=== PATIENT | female | born 1985 | race Caucasian/White ===

== ENCOUNTER 2020-03-12 10:01 | Emergency (ER) | payer OTHER, SELFPAY ==
[2020-03-12 10:05] VITALS: BP 128/70; PULSE 85; RESP 20; TEMP 36.5; O2SAT 100
--- NOTE | 2020-03-12 10:19 | ED.NAVMDI ---
HPI - Nausea/Vomiting/Diarrhea General Chief complaint: Nausea/Vomiting/Diarrhea Stated complaint: nausea diahhrea achey fatigued Time Seen by Provider: 03/12/20 10:20 Source: patient and RN notes reviewed History of Present Illness HPI Narrative: Patient is a 34-year-old female who presents the urgent care with complaints of nausea, body aches and fatigue. Patient states that her friend's mother is been in the ICU with Covid and they have both been tested, and have tested negative. Patient's Covid test was negative this morning. States that her symptoms been an ongoing since March 02 and she has not been seen at any other facility since then. Patient reports of low back pain for the last week. Recently diagnosed with a UTI approximately 1 month ago. Reports of nausea, diarrhea, body aches, fatigue, slight cough, headache, sore throat. Patient states that she has been using Mucinex and Tylenol [id number] for her symptoms. Denies of any other acute complaints. No acute distress noted. Patient aware of the plan of care. Some parts of this dictation were generated by voice recognition software and may contain typographical and/or grammatical inaccuracies. Related Data Home Medications Medication Instructions Recorded Confirmed quetiapine 100 mg PO HS 03/12/20 03/12/20 quetiapine 300 mg PO HS 03/12/20 03/12/20 Allergies Allergy/AdvReac Type Severity Reaction Status Date / Time latex Allergy Intermediate PEELING OF Verified 03/12/20 10:08 SKIN etodolac AdvReac Severe DELIRIUM/NA Verified 03/12/20 10:08 USEA PAPER TAPE Allergy Unknown PEELS SKIN Uncoded 03/12/20 10:34 OFF Review of Systems Review of Systems: Narrative: CONSTITUTIONAL: Reports of chills, fatigue EYES: Denies visual changes, redness, or discharge. ENT: Reports of sore throat CARDIOVASCULAR: Denies chest pain, palpitations, or edema. RESPIRATORY: Reports of mild cough without dyspnea GASTROINTESTINAL: Reports of nausea and diarrhea GENITOURINARY: Denies dysuria or hematuria. SKIN: Denies rash or itching. MUSCULOSKELETAL: Denies back pain, joint pain. Reports of body aches NEUROLOGIC: Reports of intermittent headaches All other systems reviewed are negative, except as documented in HPI. PMFSH Comments At the time of my signature, I reviewed and agree with the nursing past medical, surgical, social, and family history. There is no relevant family history pertinent to the patient complaint. Exam Narrative: Exam Narrative: GENERAL: This is a well-nourished, well-developed patient, in no apparent distress. HEAD: normocephalic, atraumatic. EYES: PERRL. Sclera clear/white. Vision is grossly intact. EARS: External ears normal, auditory canals clear and without drainage, TMs normal without perforation. Hearing grossly intact. NOSE: External nose normal with no obvious nasal discharge, nares without redness, no rhinorrhea. THROAT: Mucous membranes moist, moderate erythema noted to posterior oropharynx with moderate postnasal drainage NECK: Neck supple, non-tender without lymphadenopathy CARDIOVASCULAR: Regular rate and rhythm without murmurs, gallops, or rubs. RESPIRATORY: Clear to auscultation. Breath sounds equal bilaterally. No wheezes, rales, or rhonchi. GASTROINTESTINAL: Abdomen soft, mild diffuse lower abdominal tenderness, nondistended. Bowel sounds are active. SKIN: warm, intact with no suspicious lesions or rash, good texture and turgor. NEURO: awake, alert, and oriented to person, place and time. There were no obvious focal neurologic abnormalities. EXTREMITIES: No clubbing, cyanosis, or edema. BACK: Moderate bilateral CVA tenderness Course Vital Signs Vital signs: Vital Signs Temperature 97.7 F 03/12/20 10:05 Pulse Rate 85 03/12/20 10:05 Respiratory Rate 20 03/12/20 10:05 Blood Pressure 128/70 03/12/20 10:05 Pulse Oximetry 100 03/12/20 10:05 Temperature 97.7 F 03/12/20 10:05 Pulse Rate 85
== END 2020-03-12 10:40 | disposition home or self-care (01) ==
PROVIDERS: Emergency Provider Nurse Practitioner Family; PCP Family Medicine
DX: J02.0 Streptococcal pharyngitis (principal); E86.0 Dehydration; F31.9 Bipolar disorder, unspecified
CPT/HCPCS: 81003; 87086; 87804; 87880; 99213; G0463

== ENCOUNTER 2024-08-31 11:11 | Emergency (ER) | payer OTHER, SELFPAY ==
--- NOTE | ~2024-08-31 | XR_ITS ---
Left Knee Technique: AP, lateral, and oblique views were obtained. Clinical History: Pain Findings: No fracture or dislocation is seen. Osseous alignment is anatomic. Joint spaces are preserv ed without degenerative or erosive change. Soft tissues are unremarkable. No joint effusion is seen. Impression: Unremarkable left knee radiographs. Reviewed, dictated and finalized at location . Impression: Unremarkable left knee radiographs.
--- OUTSIDE RECORDS SUMMARY | 2024-08-31 11:13 | XMS_ITS | Clinical Summary ---
Author Organization [facility] Address [address] [place] [address] Care Team Providers Care Manager Concrete Name Role Phone Jeremy Mcgowan Primary Care Provider + Allergies Active Allergy Reactions Criticality Noted Date Comments Etodolac Unknown 03/18/2017 Ketorolac Unknown 11/30/2017 Latex Medications ALPRAZolam (XANAX) 1 mg tablet 2 mg daily. Active QUEtiapine (SEROquel) 200 mg tablet daily. Active pregabalin (LYRICA) 300 mg capsule Take 300 mg by mouth 2 (two) times a day. Active diclofenac DR (VOLTAREN) 75 mg EC tablet Take 150 mg by mouth 2 (two) times a day. Active albuterol HFA (PROVENTIL HFA,VENTOLIN HFA,PROAIR HFA) 90 mcg/actuation inhaler Inhale 1-2 puffs every 6 (six) hours as needed for wheezing. 1 Inhaler 8 Active oxyCODONE-acetamino phen (PERCOCET) 5-325 mg per tabletIndications:P ain Take 1 tablet by mouth every 6 (six) hours as needed for pain 8 tablet 9 Active ondansetron ODT (ZOFRAN-ODT) 4 mg disintegrating tablet Dissolve 1 tablet oral every 4 hours as needed for nausea or vomiting. 15 tablet 9 Active ibuprofen (ADVIL,MOTRIN) 600 mg tablet Take 1 tablet (600 mg total) by mouth 3 (three) times a day Take with food. 30 tablet 0 Active cyclobenzaprine (FLEXERIL) 10 mg tablet Take 1 tablet (10 mg total) by mouth 2 (two) times a day as needed for muscle spasms 20 tablet 0 Active HYDROcodone-acetami nophen (NORCO) 5-325 mg per tabletIndications:P ain Take 1 tablet by mouth every 6 (six) hours as needed for pain 14 tablet 3 Active Active Problems No known active problems Medical History Medical History Date Comments Anxiety Depression Bronchitis Social History Tobacco Use Types Packs/Day Years Used Date Smoking Tobacco: Every Day Cigarettes Smokeless Tobacco: Never Alcohol Use Standard Drinks/Week Comments Yes 0 (1 standard drink = 0.6 oz pur e alcohol) Personal Safety Answer Date Recorded Have you ever been in or are you currently in a harmful physical or emotional relationship or is someone making you feel afraid or unsafe? Denies 08/12/2023 Comments No Sex and Gender Information Value Date Recorded Sex Assigned at Not on file Legal Sex Female 1:18 AM [employer] Gender Identity Not on file Sexual Orientation Not on file Obstetrics History Last Filed Vital Signs Vital Sign Reading Time Taken Comments Blood Pressure 115/78 08/15/2023 2:00 AM CDT Pulse 63 08/15/2023 2:00 AM CDT Temperature 37.2 C (98.9 F) 08/14/2023 10:58 PM CDT Respiratory Rate 18 08/14/2023 10:58 PM CDT Oxygen Saturation 99% 08/15/2023 2:00 AM CDT Inhaled Oxygen Concentration - - Weight 95.3 kg (210 lb) 08/12/2023 2:14 PM CDT Height 165.1 cm (5' 5 ) 12/29/2022 10:40 AM CDT Body Mass Index 34.95 12/29/2022 10:40 AM CDT Plan of Treatment Health Maintenance Due Date Last Done Comments Cervical Cancer Screening 1985 Depression Screening 1985 Hepatitis C Screening 1985 DTaP/Tdap/Td Vaccine (1 - Tdap) 1996 Varicella Vaccines (1 of 2 - 13+ 2-dose series) 1998 Hepatitis B Screening 2003 Regular Well Visit/Exam 18-64 2003 Pneumococcal vaccine <65 (1 of 2 - PCV) 2004 Influenza Vaccine (Season Ended) 2024 HPV Vaccines Aged Out No longer eligi ble based on patient's age to complete this topic Insurance [facility] Care Teams Manager Concrete Relationship Specialty Start Date End Date Jeremy Mcgowan PA [address] [place] [id number] PCP - General Internal Medicine 08/12/23
--- OUTSIDE RECORDS SUMMARY | 2024-08-31 11:13 | XMS_ITS | Data Portability ---
Author Organization [facility] Address [address] [place] [address] Assessment No assessment recorded. Plan of Treatment Reminders Order Date Submit Date Provider Last Modified By Organization Details Last Modified Time Details Appointments None recorded. Lab None recorded. Referral None recorded. Procedures None recorded. Surgeries None recorded. Imaging None recorded. Medication Orders Lyrica 150 mg capsule 2018 019 [email or web address] 3 [id number] [address] [place], [place], [id number], 9 15:10:58 diclofenac sodium 75 mg tablet,del ayed release 2018 019 INTERFACE [id number], [address] [place], [place], [id number], 9 18:03:35 acyclovir 400 mg tablet 2018 019 INTERFACE [id number], [address] [place], [place], [id number], 9 18:04:11 Patient TargetsNo targets recorded. Patient Instructions Encounter Date Encounter Id Patient Instructions Last Modified By Organization Details Last Modified Time 10/19/2016 [id number] knee pain or injury: care instructions [email or web address] Not available 10/19/2016 16:43:38 shoulder pain: care instructions [email or web address] Not available 10/19/2016 16:43:38 Multiple chronic musculoskeletal complaints. SOme prev eval though probably limited. Advised I can request records from her PCP and continue with eval. but was clear that I am not ortho. Aftter review of records will form care paln. [email or web address] Not available 10/19/2016 15:16:11 Reason for Referral None Reported. Results Created Date Observation Date Name Description Value Unit Range Abnormal Flag Note LastModifiedBy Organization Detail LastModifiedTime Result Notes None recorded. Problems Name Problem SNOMED Code Status Onset Date Resolution Date Notes Provider Name and Address Organization Details Recorded Time Depressive disorder 85117219 [facility] 11:46:33 Pain of shoulder region 33518181 Active 017 PRABHJOT [place], [facility] 9 11:46:33 Knee pain Active 017 Cora Scott PRABHJOT [place], [facility] 9 11:46:33 Problem Notes None recorded. Procedures Surgical History Date Name Laterality Status Provider Name and Address Organization Details Recorded Time cholecystectomy completed Cora Scott PRABHJOT [facility] 08/24/2018 11:52:50 oophorectomy completed Cora Scott [facility] 08/24/2018 11:53:32 Tubal Ligation completed Cora Scott [facility]OT [facility] 08/24/2018 11:53:43 Imaging Results None recorded. Procedure Notes None recorded. Medical Equipment None Reported. Allergies Allergen ID Allergen Name Allergen Category Reaction Reaction Severity Criticality Documentation Date Start Date Code Code System Note Provider Name and Address Organization Details Recorded Time 721222 etodolac medicatio n Not available Not available Not available 08/24/20182016 99320 RxNorm PRABHJOT Madison [facility] 9 11:46:32 769724 latex environme nt,medica tion Not available Not available Not available 08/24/2018 76741 91 RxNorm PRABHJOT Madison [facility] 9 11:46:32 Medications Name Sig Start Date Stop Date Status Note LastModified by Organization Details LastModified Time quetiapine 300 mg tablet active Not Available Not Availabl e Not Available doxepin 25 mg capsule active Not Available Not Available Not Available hydrocodone 5 mg-acetaminop hen 325 mg tablet active Not Available Not Available Not Available ondansetron HCl 4 mg tablet 4 mg by oral route. 2016 active Not Available Not Available Not Avai lable prednisone 20 mg tablet active Not Available Not Available No t Available quetiapine 200 mg tablet Take 1 tablet every day by oral route. active Not Available Not Available No t Available acyclovir 400 mg tablet TAKE 1 TABLET BY MOUTH TWICE DAILY 2019 active Not Available Not Available Not Avai lable tramadol 50 mg tablet 50 mg by oral route. 2016 active Not Available Not Available Not Avai lable quetiapine 100 mg tablet 100 mg by oral route. active Not Available Not Available No t Available alprazolam 0.25 mg tablet 0.25 mg by oral route. active Not Available Not Available No t Available diclofenac sodium 75 mg tablet,delaye d release Take 1 tablet twice a day by oral route. 2018 active Not Available Not Available Not Avai lable gabapentin 100 mg capsule active Not Available Not Available Not Available ibuprofen 600 mg tablet active Not Available Not Available No t Available Xanax 1 mg tablet Take 1 tablet every day by oral route. active at bedtime Not Available Not Available Not Available Ventolin HFA 90 mcg/actuation aerosol inhaler active Not Available Not Available Not Available duloxetine 30 mg capsule,delay ed release active Not Available Not Available N ot Available pregabalin 150 mg capsule 2018 active Not Available Not Available Not Avai lable gabapentin 600 mg BID active Not Available Not Available No t Available Vitals Date Recorded Body weight Oxygen saturation Oxygen saturation in Arterial blood by Pulse oximetry Heart rate Body temperature Systolic blood pressure Diastolic blood pressure Provider Name and Address Organization Details Last Updated DateTime 9 58904.5 g 97 % 97 % 89 /min 98.4 [degF] 110 mm[Hg] 62 mm[Hg] Cora Scott MA [facility] 9 11:59:51 Date Recorded Body weight Body temperature Body height Body mass index (BMI) Systolic blood pressure Diastolic blood pressure Provider Name and Address Organization Details Last Updated DateTime 7 26857.9 3 g 98.5 [degF] 165.1 cm 27.8 kg/m2 120 mm[Hg] 70 mm[Hg] Leila Stiles LPN [facility] 7 14:53:46 Social History Question Answer Notes LastModified by Organizat ion Details LastModified Time Tobacco Smoking Status Current Every Day Smoker PRABHJOT [place], [facility] 08/24/2018 11:47:34 What Is Your Level Of Caffeine Consumption? Heavy Information not available 08/24/2018 How Much Tobacco Do You Chew? None Information not available 08/24/2018 What Type Of Diet Are You Following? REGULAR Information not available 08/24/2018 Which Illicit Or Recreational Drugs Have You Used? None Information not available 08/24/2018 Marital Status Single Informati on not available 08/24/2018 What Was The Date Of Your Most Recent Tobacco Screening? 09/02/2018 Information not available 11/02/2018 How Much Tobacco Do You Smoke? 1 PPD Information not available 08/24/2018 General Stress Level Medium Information not available 08/24/2018 Has Tobacco Cessation Counseling Been Provided? Yes [email or web address] Information not available 09/02/2018 On What Date Was Tobacco Cessation Counseling Provided? 09/02/2018 [email or web address] Information not available 09/02/2018 How Many Years Have You Smoked Tobacco? 20 Information not available 08/24/2018 Sex: Unknown Functional Status Question Answer Note LastModified by Organization D etails LastModified Time What is your level of alcohol consumption? None Information not available 08/24/2018 What is your occupation? [employer] Information not available 08/24/2018 What is your exercise level? None Information not available 08/24/2018 Mental Status None recorded. Family History Relationship Description Onset Age of this Age Resolved Age Notes LastModified by Organization Details LastModified Time Maternal Grandmother Malignant neoplasm of lung [email or web address] Not available 2016 14:50:20 Medical History Condition Response Coronary Artery Disease N Other N High Blood Pressure N Atrial Fibrillation N Kidney or Bladder Problems N Thyroid Problems N GI Problems Y Depression Y COPD N Blood Clots N Skin Problems N Anemia N Heart Attack (SC) N Anxiety Disorder Y Diabetes N Muscle, Joint, or Bone Problems Y Seizures/Epilepsy N Acid Reflux (GERD) N Cancer N Stroke N Asthma N Allergies Y High Cholesterol N Hepatitis N Liver Disease N Headaches N Heart Failure N Osteoporosis N Gynecological History Statement/Question Response Date of LMP 09/29/2016 LMP Approximate Obstetrics History GPAL:G 0 P 0 0 0 0 Past Encounters Encounter ID Performer Location Encounter Start Date Encounter Closed Date Diagnosis/Indication Diagnosis SNOMED-CT Code Diagnosis ICD10 Code Diagnosis Note [id number] Cyndi culver MD [facility] [address] [place] [address] 10/19/2016 14:32:44 10/19/2016 16:16:43 Knee pain 31595356 M25.569 [facility] 62631304 M25.697 [id number] Deirdre Tyler MD [facility] [address] [place] [address] 08/24/2018 10:57:50 09/05/2018 09:28:55 Moderate recurrent major depression 59083708 F33.1 Patient sees a psychiatri for trintellix and seroquel History of menorrhagia 060236651 Z87.42 Patient recently had uterine ablation due to heavy periods. Musculoskeletal pain 279 821562 M79.10 Herpes simplex 38701525 B00.9 Health Concerns Section Related Observation LastModified by Organization Detai ls LastModified Time None Recorded Concern Status LastModified by Organization Details LastModified Time None Recorded Advance Directives Directive None Recorded Payers Encounter Date Sequence Insurance Name Policy Number Policy Neal Covered Member ID Neal Member ID Guarantor Name 10/19/2016 1 [facility] PRIOR TO 10/09/2020 (MEDICAID REPLACEMENT - HMO) Jennie Price [id number] Jennie Price 08/24/2018 1 [facility] PRIOR TO 10/09/2020 (MEDICAID REPLACEMENT - HMO) Jennie Price [id number] Jennie Price Notes Date Note Type Note Provider Name and Address Organization Details Recorded Time 7 text/html 2 year B shoulder pain, hands numb and tingling, B knees and back pain. Prev PCP did xrays, told tendonitis and arthritis. Referred to specialist but unable to keep appts for unclear reasons. Is actually here today expecting orthopedic evaluation, believes referred by her insurance. Depression - sees psych with [facility]. Leila Stiles LPN [facility], [facility] 10/19/2016 15:35:55 9 text/html Anxiety/DepressionReported bypatient.Quality:symptoms improved Severity:denies suicidal ideations; able to maintain relationships; does not interfere with activities of daily living Onset/Timing:gradual Context:major life stressors;family problems;trouble at work Modifying Factors:Patient sees a psychiatrist regularly for medications Associated Symptoms:denies homicidal ideations; no visual/auditory hallucinations; maintaining functionality;anxiety;hyper sensitivity;depression;rest lessness/agitation;anhedoni a;anxiety with muscle tensionMusculoskeletal PainReported bypatient.Location:bilatera l shoulder; bilateral knee Quality:sharp Severity:interference with sleep;interference with work Timing:intermittent Context:trauma; overuse; unusual activity Alleviating factors:rest; relieved by changing position Aggravating factors:movement/positionin g; bending over; twisting Associated Symptoms:no fever; no weak limbs; no tingling; no numbness of the legs/feet; no incontinence ADL (Activities of Daily Living)improve with medication; takes diclofenac and lyrica Patient takes acyclovir to prevent outbreaks of herpes simplex. She has recently had an endometrial ablation to control heavy menstrual flow. Deirdre Tyler MD Attn: Accounting,[address] [place], [address], [facility] 09/02/2018 18:04:29 OBGyn Episode No OBEpisode recorded.
--- OUTSIDE RECORDS SUMMARY | 2024-08-31 11:13 | XMS_ITS | CONTINUITY OF CARE DOCUMENT ---
Author Name brandon taylor Address Unknown Organization [facility] Address [address] [place] [address] Phone [phone] Care Team Providers Care Office Administrative Assistant Name Role Phone Yves BURGESS, Kamran Unavailable CHINO LO MD Unavailable BELA BURGESS, MARTINA Holland Unavailable INSURANCE PROVIDERS Payer name Policy type / Coverage type [place] red republican [place] [facility] [employer] Medicaid 1 [id number]
--- OUTSIDE RECORDS SUMMARY | 2024-08-31 11:13 | XMS_ITS | Continuity of Care Document ---
Author Organization [facility] Address [address] [place] [address] [place] [address] Phone Care Team Providers Care Medical Assistant Supervisor Name Role Phone Aaron Riggins MD Unavailable Unavailable Allergies, Adverse Reactions, Alerts Substance Reaction Status Criticality TAPE, OCCLUSIVE ADHESIVE Active No Information CYCLOBENZAPRINE HCL Active No Infor mation latex Active No Information Medications Medication Instructions Dosage Effective Dates (start - stop) Status Comments Ultram 50 mg tablet take 1 tablet by oral route every 6 hours as needed - Active PRN for pain, avoid driving or operate machines Procedures Procedure Date OFFICE/OUTPATIENT VISIT, EST PREV VISIT, NEW, AGE 18-39 Advance Directives Directive Yes / No Effective Date File Name No Information Encounters Encounter Description Practice Location Reason(s) For Visit Diagnoses Date Provider Providers Copied on Encounter [facility], [address] [place], [place], [id number], tel:[phone] [facility] No Information Gilson Walker. [address] [place], [id number], [place]. tel:[phone] Referring Provider: Aaron Riggins, [address] [facility] [place], [id number]. tel:[phone] OFFICE/OUTPAT IENT VISIT, EST [facility], [address] [place], [place], [id number], tel:[phone] [facility] shoulder pain1 (chief complaint) Pain in left shoulder Gilson Walker. [address], [place], [place], [id number], [place]. tel:[phone] Referring Provider: Kathrine Sanchez [facility] [address], [place], [place], [id number]. tel:[phone] PREV VISIT, NEW, AGE 18-39 [facility], [address], [place], [place], [id number], [place] tel:[phone] [facility] Physical (chief complaint) Encntr for general adult medical exam w/o abnormal findings Gilson Walker. [address], [facility] [address], [place], [place], [id number], [place]. tel:[phone] Referring Provider: Aaron Riggins [address] [facility] [address], [place], [place], [id number]. tel:[phone] Family History Family Member Type Diagnosis Age At Onset Sister Problem (finding) Alive and well Mother Problem (finding) Alive and well Father Problem (finding) unkonwn Payers Payer name Insurance type Covered republican ID Authoriza tion(s) No Information Social History Type Description Quantity Date Captured Comments Alcohol Use Details Unknown Caffeine Use Details Unknown Tobacco Use Status Smoking Status No Information Sex Female Chief Complaint And Reason For Visit No Information Plan Of Treatment Date Type Action Status Referral Ordered: Davin Paul (related to Pain in left shoulder) ordered Referral Ordered: Physical Therapy (related to Pain in left shoulder) ordered Referral Referred To: Davin Paul [address] [place], [phone] Ordered: Referrals: Davin Paul. Evaluate and treat ordered Referral Referred To: Physical Therapy Ordered: Referrals: Physical Therapy. Evaluate and treat ordered Referral Ordered: MRI JOINT UPR EXTREM W/O DYE Left shoulder ordered History Of Present Illness Encounter Date Complaint History Of Prese nt Illness shoulder pain1 Pt c/o chronic l eft shoulder pain. Pt has dull ache daily, worse with movement. Pt had MRI done which showed some degenerative disease and some tendonitis. She does not have any tears. Pt has been taking NSAID but not working. [facility] 29 [facility]. Pt was making bed about one year ago and she felt acute pain posterior left shoudler area. Pt has sharp pain. Pt statse that the pain is getting worse and is constant and radiating down to left upper arm and to left side of neck for the past 3 weeks. Pt denies any new injury. Pt denies any numnbess. Pt states that she has 6/10 pain on average Pt has to baby her left shoulder all the time due to pain. Pt also takes xanax and trazodone for insomnia and anxiety at night. Pt sees psychiatrist. Instructions Date Instruction Additional Infor guerline No Information Assessments Type Assessment Date No Information
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
--- OUTSIDE RECORDS SUMMARY | 2024-08-31 11:13 | XMS_ITS | Clinical Summary ---
Author Organization [facility] Address [address] [place] [address] Phone Care Team Providers Care Software Specialist Name Role Phone Laz Cohen MD Primary Care Provider [phone] Allergies Active Allergy Reactions Criticality Noted Date Comments Etodolac Nausea 11/18/2016 Latex Rash 06/20/2017 Other Other (see Comments) 06/20/2017 pulls my skin off Tramadol Nausea 06/20/2017 Medications QUEtiapine (SEROQUEL) 100 MG Tablet Take 150 mg by mouth daily. Active gabapentin (NEURONTIN) 300 MG Capsule Take 600 mg by mouth 2 times daily. Active ALPRAZolam (XANAX) 1 MG Tablet Take 1 mg by mouth daily as needed. Active ondansetron (ZOFRAN) 4 MG Tablet Take 1-2 Tabs by mouth every 8 hours as needed for Nausea. 10 Tab 11/18/2016 Active tiZANidine (ZANAFLEX) 4 MG Tablet Take 1 Tab by mouth every 6 hours as needed. 14 Tab 06/20/2017 Active methylPREDNISol one (MEDROL DOSPACK) 4 MG Tablet Therapy Pack See product package insert for dosing schedule 21 Tab 06/20/2017 Active Social History Tobacco Use Types Packs/Day Years Used Date Smoking Tobacco: Every Day Cigarettes Smokeless Tobacco: Never Alcohol Use Standard Drinks/Week Comments No 0 (1 standard drink = 0.6 oz pur e alcohol) Comments No Sex and Gender Information Value Date Recorded Sex Assigned at Not on file Legal Sex Female 9:01 PM CDT Gender Identity Not on file Sexual Orientation Not on file Last Filed Vital Signs Vital Sign Reading Time Taken Comments Blood Pressure 122/68 06/20/2017 8:17 PM CDT Pulse 82 06/20/2017 8:17 PM CDT Temperature 36.5 C (97.7 F) 06/20/2017 6:26 PM CDT Respiratory Rate 16 06/20/2017 6:26 PM CDT Oxygen Saturation 100% 06/20/2017 8:17 PM CDT Inhaled Oxygen Concentration - - Weight 79.4 kg (175 lb) 06/20/2017 6:26 PM CDT Height 165.1 cm (5' 5 ) 06/20/2017 6:26 PM CDT Body Mass Index 29.12 06/20/2017 6:26 PM CDT Plan of Treatment Health Maintenance Due Date Last Done Comments Hepatitis C Virus (HCV) Screening 1985 TdaP Immunization 1985 Hepatitis B Immunization (1 of 3 - 19+ 3-dose series) 2004 Influenza Immunization (#1) 2023 SARS-COV-2 Immunization ( - 2023-25 season) 2023 Respiratory Syncytial Virus (RSV) Immunization (Adult) (1 - 1-dose 75+ series) 2060 Meningococcal Immunization (ACWY) Aged Out No longer eligible based on patient's age to complete this topic Pneumococcal Immunization Combined Aged Out No longer eligible based on patient's age to complete this topic Rotavirus Immunization Aged Out No lo nger eligible based on patient's age to complete this topic Insurance MEDICAID [facility] [employer] Care Teams Software Specialist Relationship Specialty Start Date End Date Laz Cohen MD [address] [facility] [address] [place] [address] PCP - General Family Medicine 11/18/16
--- OUTSIDE RECORDS SUMMARY | 2024-08-31 11:13 | XMS_ITS | Clinical Summary ---
Author Organization [facility] [employer] Address [address] [place] [address] Care Team Providers Care Armored Transport Service Manager Name Role Phone Osmel Rodriguez MD Primary Care Provider [phone] Source Comments [facility] [employer]non-owned Affiliates and Associated Physician Practices is amultiple site organization consisting of ambulatory clinics and hospital sitesin [place], [place], [place] and [place]. This disclosure is being madepursuant to the Care Everywhere program and may not contain all information available regarding this patient. Last updated 17.[facility] [employer] Allergies No known active allergies Medications * Be aware that medications may not be up to date on this document. Always verify current medications with the patient. TRAZODONE HCL PO Active GABAPENTIN PO Active ALPRAZolam (XANAX PO) Active fluticasone propionate (FLONASE) 50 MCG/ACT nasal sprayIndication s:Eustachian tube dysfunction, bilateral [place] 2 Sprays into each nostril once daily 1 Bottle 06/01/2016 Active Social History Tobacco Use Types Packs/Day Years Used Date Smoking Tobacco: Every Day Comments Unknown Sex and Gender Information Value Date Recorded Sex Assigned at Not on file Legal Sex Female 6:22 AM TRANSPORTATION ASSOCIATE Gender Identity Not on file Sexual Orientation Not on file Last Filed Vital Signs Vital Sign Reading Time Taken Comments Blood Pressure 112/60 06/01/2016 4:33 PM TRANSPORTATION ASSOCIATE Pulse 85 06/01/2016 4:33 PM TRANSPORTATION ASSOCIATE Temperature 36.8 C (98.2 F) 06/01/2016 4:33 PM TRANSPORTATION ASSOCIATE Respiratory Rate - - Oxygen Saturation - - Inhaled Oxygen Concentration - - Weight 77.1 kg (170 lb) 06/01/2016 4:33 PM TRANSPORTATION ASSOCIATE Height 165.1 cm (5' 5 ) 06/01/2016 4:33 PM TRANSPORTATION ASSOCIATE Body Mass Index 28.29 06/01/2016 4:33 PM TRANSPORTATION ASSOCIATE Plan of Treatment Health Maintenance Due Date Last Done Comments HIV SCREENING 2000 HEPATITIS C SCREENING 05/13/2003 DTAP/TDAP/TD VACCINES (1 - Tdap) 2004 HEPATITIS B VACCINE (1 of 3 - 19+ 3-dose series) 2004 COVID-19 VACCINE (1 - 2023-2 5 season) 2023 DEPRESSION SCREENING 04/11/2024 INFLUENZA VACCINE (Season Ended) 2024 ZOSTER VACCINE (1 of 2) 2035 HIB VACCINE Aged Out No longer eligi ble based on patient's age to complete this topic HPV VACCINE Aged Out No longer eligi ble based on patient's age to complete this topic MENINGOCOCCAL (Group B) VACC INE SHARED DECISION-MAKING Aged Out No longer eligibl e based on patient's age to complete this topic MENINGOCOCCAL GROUPS A/C/Y/W VACCINE Aged Out No longer eligible b ased on patient's age to complete this topic PNEUMOCOCCAL VACCINE Aged Out No long er eligible based on patient's age to complete this topic Insurance [facility] Care Teams Armored Transport Service Manager Relationship Specialty Start Date End Date Osmel Rodriguez MD [address] [place] [address] PCP - General 08/05/17
--- OUTSIDE RECORDS SUMMARY | 2024-08-31 11:13 | XMS_ITS | Referral Summary ---
Author Organization [facility] Address [address] [place] [address] Care Team Providers Care Integrated Logistics Programs Director Name Role Phone Jeremy Mcgowan Primary Care [...] Active Active Problems No known active problems Social History Tobacco Use Types Packs/Day Years [...] on file Legal Sex Female 1:18 AM UPHOLSTERY BUNDLER Gender Identity Not on file Sexual Orientation [...] 12/29/2022 10:40 AM CDT Plan of Treatment Not on file Insurance [facility] Care Teams Integrated Logistics Programs Director Relationship Specialty Start Date End Date Jeremy Mcogwan PA [address] [place] [address] PCP - General Internal Medicine 08/12/23
--- OUTSIDE RECORDS SUMMARY | 2024-08-31 11:14 | XMS_ITS | Data Portability ---
Author Organization [facility] [place] Address [address] [place] [address] Assessment Encounter Date Assessment Date Assessment LastModified by Organization Details LastModified Time 02/22/2024 02/22/2024 Annual gynecological exam performed. Patient will come back in a year unless there are new symptoms. [email or web address] Not available 02/22/2024 14:58:25 Plan of Treatment Reminders Order Date Submit Date Provider Last Modified By Organization Details Last Modified Time Details Appointments None recorded . Lab None recorded . Referral None recorded . Procedures None recorded . Surgeries None recorded . Imaging None recorded . Medication Orders Xanax 0.5 mg tablet 021 07[facility]18[facility]19 [id number], [address], [place], [place], [id number], 15:02:02 Patient TargetsNo targets recorded. Patient InstructionsNo instructions recorded. Reason for Referral None Reported. Results Created Date Observation Date Name Description Value Unit Range Abnormal Flag Note LastModifiedBy Organization Detail LastModifiedTime 07/18/1907/17/2020 CT + NG + TV, RNA, unspe cifie d speci men chlamydia trachomatis, PCR Negati ve negati ve Not Available [facility] (Lab) [address], [place], [address], 07/18/2020 12:50:13 07/18/19 21 07/17/2020 CT + NG + TV, RNA, unspe cifie d speci men neisseria gonorrhoeae, PCR Negati ve negati ve Not Available [facility] (Lab) [address], [place], [address], 07/18/2020 12:50:13 07/18/19 21 07/17/2020 CT + NG + TV, RNA, unspe cifie d speci men trichomonas vaginalis ribosomal RNA (rrna) Negati ve negati ve Not Available [facility] (Lab) [address], [place], [address], 07/18/2020 12:50:13 02/22/20 24 02/22/2024 IMAGE GUIDE D PAP AND HPV REGAR DLESS image guided Pap, HPV regardless of Pap result SEE RESULT S BELOW CASE REPOR T: Cytol ogy Gynec ologi katty Repor t Case: [id number] Autho crdes hernesto Provi shania: Stephon Garcia MD Colle cted: 02/21 1524 Order ing Locat ion: [place] [facility] Recei jeanette: 02/22 0212 First Scree n: Stefanie Scott, CT Speci men: Dottie nicholsong Pap - Image d, Cervi x STATE MENT OF ADEQU ACY: Satis facto ry for evalu ation Trans forma tion zone compo nent prese nt ----- ----- ----- ----- ----- ----- ----- ----- ----- ----- ----- ----- ----- ----- ----- ----- ----- ---- FINAL DIAGN OSIS: Negat seth for Intra epith elial Mirna galvan or [facility] springer (NIL) . Maryan hays by Stefanie Scott, CT on 03/01 at 9:43 AM ----- ----- ----- ----- ----- ----- ----- ----- ----- ----- ----- ----- ----- ----- ----- ----- ----- ---- HPV RESUL TS: HPV mRNA E6/E7 : No HPV mRNA Detec kalani NOTE: This high risk HPV mRNA assay detec ts fourt een high- risk HPV types (16, 18, 31, 33, 35, 39, 45, 51, 52, 56, 58, 59, 66, 68) witho ut diffe renti ation . COMME NT: This speci men was revie wed by a Cytot echno logis t and/o r Patho logis t (as indic ated in this repor t) after evalu ation using the Thinp rep Imagi ng Syste m. CLINI KATTY INFOR MATIO N: Menst rual Statu s: LMP (if appli cable ): 01/21 Clini katty Histo ry/Pr eviou s Pap: Type of Neopl denver (if appli cable ): Signi fican t Clini katty Findi ngs: Other Histo ry: Hormo nate (if appli cable ): PAP EDUCA MEREDITH L NOTE: The Pap Test is a scree ratna test with an inher ent false negat seth rate. Liqui d-bas ed sampl ing may decre ase, but will not elimi philip, false negat seth resul ts. A negat seth resul t does not precl ude the prese nce and/o r devel opmen t of disea se, since the prese nce of abnor mal cells in the sampl e depen ds on the locat ion of the lesio n and sampl ing techn ique. Ariel nued regul ar scree ratna is the best metho d of cance r preve ntion . If repor kalani cytol ogic findi ng do not corre late with physi katty and/o r histo rical findi ngs, furth er inves tigat ion is recom rommel d, as clini lou tee nted. Not Available [facility] (Lab) [address], [place], [address], 03/01/2024 10:46:56 Result Notes None recorded. 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 0 15:45:45 Right lower quadrant pain 604341102 Active 2017 Right lower quadrant pain;Recor ded Elsewhere: No Locatio n: [facility] rce: EHR Chroni c: N Practice ID: 0001 Billa ble Time: 02:30:00 PM Not Available [facility] 0 15:45:45 Cyst of ovary Active 2017 Unspecifie d ovarian cyst, unspecifie d side;Recor ded Elsewhere: No Locatio n: [facility] rce: EHR Chroni c: N Practice ID: 0001 Billa ble Time: 10:15:00 AM Not [facility] 0 15:45:45 Infection screening Active 2015 Encounter for screening for oth infec/para stc diseases;R ecorded Elsewhere: No Locatio n: [facility] rce: EHR Chroni c: N Practice ID: 0001 Billa ble Time: 03:30:00 PM [facility] 0 15:45:45 Screening for malignant neoplasm of cervix Active 2015 Screening for malignant neoplasms of the cervix;Rec orded Elsewhere: No Locatio n: [facility] rce: EHR Chroni c: N Practice ID: 0001 Billa ble Time: 03:30:00 PM [facility] 0 15:45:45 Lesion of ovary Active 2016 Other ovarian cyst, right side;Recor ded Elsewhere: No Locatio n: [facility] rce: EHR Chroni c: N Practice ID: 0001 Billa ble Time: 10:30:00 AM Not [facility] 0 15:45:45 Syphilis test finding 831189380 Active 2016 Encounter for STD screening; Recorded Elsewhere: No Locatio n: [facility] rce: EHR Chroni c: N Practice ID: 0001 Billa ble Time: 04:15:00 PM [facility] 0 15:45:45 Furuncle 163734707 Active 2015 Boil;Recor ded Elsewhere: No Locatio n: [facility] rce: EHR Chroni c: N Practice ID: 0001 Billa ble Time: 03:30:00 PM Not Available [facility] 0 15:45:45 Lesion of ovary Active 2018 Other ovarian cyst, left side;Recor ded Elsewhere: No Locatio n: [facility] rce: EHR Chroni c: N Practice ID: 0001 Billa ble Time: 02:30:00 PM [facility] 0 15:45:45 Evaluatio n finding Active 2016 Hematuria, unspecifie d;Recorded Elsewhere: No Locatio n: [facility] rce: EHR Chroni c: N Practice ID: 0001 Billa ble Time: 09:30:00 AM Not Available [facility] 0 15:45:46 Specializ ed medical examinati on Active 2014 Gynecologi katty Examinatio n;Recorded Elsewhere: No Locatio n: [facility] rce: EHR Chroni c: N Practice ID: 0001 Billa ble Time: 01:00:00 PM [facility] 0 15:45:46 Pelvic and perineal pain 278673392 Active 2018 Pelvic and perineal pain;Recor ded Elsewhere: No Locatio n: [facility] rce: EHR Chroni c: N Practice ID: 0001 Billa ble Time: 09:15:00 AM Not [facility] 0 15:45:46 Adult health examinati on Active 2014 Routine general medical examinatio n at a health care facility;P ractice ID: 0001 Not Available [facility] 0 15:45:[address] Concept Active 2015 Encntr for sample hand exam (general) (routine) w/o abn findings;P ractice ID: 0001 Not Available [facility] 0 15:45:46 Vaginolab ial hernia Active 2015 Other specified noninflamm atory disorders of vagina;Pra ctice ID: 0001 Not Available [facility] 0 15:45:46 Body mass index 25-29 - overweigh t 592960776 Active 2015 Body mass index (BMI) 28.0-28.9, adult;Chris rded Elsewhere: No Locatio n: [facility] rce: EHR Chroni c: N Practice ID: 0001 Billa ble Time: 03:30:00 PM Not Available [facility] 0 15:45:47 Urinary tract infectiou s disease 41564556 Active 2017 Urinary tract infection, site not specified; Recorded Elsewhere: No Locatio n: [facility] rce: EHR Chroni c: N Practice ID: 0001 Billa ble Time: 04:00:00 PM Not Available [facility] 0 15:45:47 test negative 876617487 Active 2018 Encounter for test, result negative;R ecorded Elsewhere: No Locatio n: [facility] rce: EHR Chroni c: N Practice ID: 0001 Billa ble Time: 01:30:00 PM Not Available [facility] 0 15:45:47 Procedure on genitouri nary system Active 2018 Encounter for surgical aftercare following surgery on the genitourin miryam system;Rec orded Elsewhere: No Locatio n: [facility] rce: EHR Chroni c: N Practice ID: 0001 Billa ble Time: 09:45:00 AM Not Available [facility] 0 15:45:47 Postopera tive care Active 2018 Encounter for surgical aftercare following surgery on the genitourin miryam system;Rec orded Elsewhere: No Locatio n: [facility] rce: EHR Chroni c: N Practice ID: 0001 Billa ble Time: 09:45:00 AM Not Available [facility] 0 15:45:48 Disorder of endocrine ovary Active 2017 Corpus luteum cyst of right ovary;Prac eb ID: 0001 Not Available [facility] 0 15:45:48 Disease 39268585 Active 2017 Oth cond assoc w female genital organs and menstrual cycle;Prac eb ID: 0001 Not Available [facility] 0 15:45:49 Problem Notes None recorded. Procedures Surgical History Date Name Laterality Status Provider Name and Address Organization Details Recorded Time 12/02/19 16 Date of Last Pap Smear completed [facility] 07/17/2020 14:07:16 laparoscopic right salpingo-oophorecto my completed [facility] 07/17/2020 14:10:11 Tubal Ligation completed [facility] 07/17/2020 14:10:19 Cholecystectomy completed [facility] 07/17/2020 14:10:26 Imaging Results None recorded. Procedure Notes None recorded. Medical Equipment None Reported. Allergies Allergen ID Allergen Name Allergen Category Reaction Reaction Severity Criticality Documentation Date Start Date Code Code System Note Provider Name and Address Organization Details Recorded Time 32953 cyclobenz aprine medicatio n Not available Not available Not available 03/28/2020 86760 RxNorm Comme nt: [facility]; Not Available [facility] 0 14:20:34 56782 etodolac medicatio n Not available Not available Not available 03/28/2020 14180 RxNorm Comme nt: [facility]at [facility]; Not Available [facility] 0 14:20:34 54578 adhesive tape environme nt,medica tion Not available Not available Not available 07/17/2020 61054 [facility] 1 14:05:21 63186 Dilaudid medicatio n Not available Not available Not available 07/17/2020 41535 3 RxNorm Swathi banks [facility] 1 14:06:38 79824 hydromorp bhupendra medicatio n Not available Not available Not available 07/17/2020 3423 RxNorm Swathi banks [facility] 1 14:06:34 Medications Name Sig Start Date Stop Date Status Note LastModified by Organization Details LastModified Time clindamyc in HCl 300 mg capsule TAKE 1 CAPSULE BY MOUTH THREE TIMES DAILY active Not Available Not Available No t Available trazodone 50 mg tablet take 1 tablet by oral route 3 times every day after meals 03/24 completed Prescrib ed Elsewher e: Yes Loca tion: Saramilly alonso [facility] odify By: rosendo finch DateTime : 05/17/19 17 04:15:00 PM Not Available Not Available Not Available ibuprofen 800 mg tablet TAKE 1 TABLET BY MOUTH THREE TIMES DAILY WITH MEALS active Not Available Not Available No t Available alprazola m 1 mg tablet TAKE 1 TABLET BY MOUTH TWICE DAILY NEEDED active Not Available Not Available No t Available fluconazo le 150 mg tablet take 1 tablet now and repeat in 72 hours active Not Available Not Available No t Available hydrocodo ne 5 mg-acetam inophen 325 mg tablet take 1-2 tablet by oral route every 6 hours as needed for pain 07/17 completed Prescrib ed Elsewher e: No Locat ion: Sarabinhverito gupta [facility] odify By: [email or web address] Encounte r DateTime : 08/18/19 19 11:48:12 AM Not Available Not Available Not Available prednison e 20 mg tablet active Not Available Not Available Not Available Seroquel 25 mg tablet take 1 tablet by oral route 2 times every day 02/21 completed Prescrib ed Elsewher e: Yes Loca tion: Harika alonso [facility] odify By: [email or web address] E ncounter DateTime : 03/24/20 17 09:30:00 AM Not Available Not Available Not Available phentermi ne 37.5 mg tablet TAKE 1 TABLET BY MOUTH EVERY DAY active Not Available Not Available No t Available acyclovir 400 mg tablet take 1 tablet by oral route every 12 hours 07/24 completed Prescrib ed Elsewher e: No Locat ion: Harika gupta [facility] odify By: sneha Joseph r DateTime : 07/15/19 19 11:04:03 AM Not Available Not Available Not Available oxycodone -acetamin ophen 5 mg-325 mg tablet TAKE 1 TABLET BY MOUTH TWICE DAILY NEEDED active Not Available Not Available No t Available alprazola m 0.5 mg tablet TAKE 1 TABLET BY MOUTH THREE TIMES DAILY active Not Available Not Available No t Available Flagyl 500 mg tablet take 1 tablet by oral route every 12 hours 01/05 completed Prescrib ed Elsewher e: No Locat ion: Harika gupta [facility] odify By: sneha Joseph r DateTime : 12/08/19 16 12:00:20 PM Not Available Not Available Not Available Xanax 0.25 mg tablet take 1 tablet by oral route 3 times every day 07/24 completed Prescrib ed Elsewher e: Yes Loca tion: Harika gupta [facility] odify By: sneha Joseph r DateTime : 11/05/19 15 01:00:00 PM Not Available Not Available Not Available cephalexi n 500 mg capsule TAKE 1 CAPSULE BY MOUTH FOUR TIMES DAILY FOR 7 DAYS 02/21 completed Not Available Not Available Not Available gabapenti n 300 mg capsule take 1 capsule by oral route 2 times every day 07/11 completed Prescrib ed Elsewher e: No [facility] By: cole sumner DateTime : 06/16/19 18 02:30:00 PM Not Available Not Available Not Available diclofena c sodium 75 mg tablet,de layed release TAKE 1 TABLET BY MOUTH EVERY DAY active Not Available Not Available No t Available Valtrex 500 mg tablet take 1 tablet by oral route every 24 hours 07/17 completed Prescrib ed Elsewher e: No Locat ion: Harika gupta [facility] odify By: [email or web address] [address]pta ncounter DateTime : 07/15/19 11:04:03 AM Not Available Not Available Not Available gabapenti n 100 mg capsule take 3 capsule by oral route 3 times every day 07/11 completed Prescrib ed Elsewher e: Yes Loca tion: Harika gupta [facility] odify By: cole Joseph r DateTime : 03/24/20 17 09:30:00 AM Not Available Not Available Not Available doxycycli ne hyclate 100 mg tablet take 1 tablet by oral route every day 03/29 completed Prescrib ed Elsewher e: No Locat ion: Harika gupta [facility] odify By: [email or web address] Alonso ncounter DateTime : 03/24/20 17 09:30:00 AM Not Available Not Available Not Available Bactrim DS 800 mg-160 mg tablet take 1 tablet by oral route every 12 hours 06/06 completed Prescrib ed Elsewher e: No Locat ion: Harika gupta [facility] odify By: [email or web address] h Encoun ter DateTime : 06/06/19 18 04:00:00 PM Not Available Not Available Not Available bupropion HCl XL 300 mg 24 hr tablet, extended release TAKE 1 TABLET BY MOUTH EVERY DAY active Not Available Not Available No t Available Cymbalta 20 mg capsule,d elayed release take 1 capsule by oral route 2 times every day 07/11 completed Prescrib ed Elsewher e: Yes Loca tion: Harika gupta [facility] odify By: cole Joseph r DateTime : 03/24/20 17 09:30:00 AM Not Available Not Available Not Available pregabali n 200 mg capsule TAKE 1 CAPSULE BY MOUTH TWICE DAILY active Not Available Not Available No t Available Lyrica 25 mg capsule take 2 capsule by oral route 3 times every day 07/17 completed Prescrib ed Elsewher e: Yes Loca tion: Harika gupta [facility] odify By: cole Joseph r DateTime : 07/12/19 19 01:30:00 PM Not Available Not Available Not Available chlorhexi dine gluconate 0.12 % mouthwash SWISH AND SPIT 10 ML BY MOUTH TWICE DAILY 02/21 completed Not Available Not Available Not Available oxycodone -acetamin ophen active Not Available Not Available Not Available Wellbutri n active Not Available Not Available Not Available Voltaren 1 % topical gel apply by topical route 4 times every day to the affected area(s) 07/17 completed Prescrib ed Elsewher e: Yes Loca tion: [facility] odify By: cole Joseph r DateTime : 07/12/19 01:30:00 PM Not Available Not Available Not Available Trintelli x 5 mg tablet take 1 tablet by oral route every day at the same time each day 07/17 completed Prescrib ed Elsewher e: Yes Loca tion: [facility] odify By: sneha Joseph r DateTime : 07/25/19 10:45:00 AM Not Available Not Available Not Available Vitals Date Recorded Body height Body mass index (BMI) Body weight Systolic blood pressure Diastolic blood pressure Provider Name and Address Organization Details Last Updated DateTime 07/17/2020 165.1 cm 30.5 kg/m2 29397.4 g 121 mm[Hg] 78 mm[Hg] Swathi Nazanin [facility] 14:04:50 Date Recorded Body height Body mass index (BMI) Body weight Systolic blood pressure Diastolic blood pressure Provider Name and Address Organization Details Last Updated DateTime 02/22/2024 165.1 cm 33.3 kg/m2 35094.47 g 114 mm[Hg] 75 mm[Hg] Kathryn Dumont [facility] 4 15:01:45 Social History Question Answer Notes LastModified by Organizat ion Details LastModified Time Tobacco Smoking Status Current Every Day Smoker Swathi Nazanin banks [facility] 07/17/2020 14:09:51 In The 14 Days Before Symptom Onset, Have You Had Close Contact With A Laboratory-confirm ed COVID-19 While That Case Was Ill? No [email or web address] Information n ot available 02/22/2024 In The 14 Days Before Symptom Onset, Have You Had Close Contact With A Person Who Is Under Investigation For COVID-19 While That Person Was Ill? No [email or web address] Information not available 02/22/2024 Have You Been To An Area Known To Be High Risk For COVID-19? No [email or web address] Information not available 02/22/2024 Sex: Unknown Functional Status None recorded. Mental Status None recorded. Family History Relationship Description Onset Age of this Age Resolved Age Notes LastModified by Organization Details LastModified Time Mother Inflammatory disease of liver [email or web address] Not available 2023 14:54:41 Sister Genetic disease [email or web address] Not available 2023 14:54:41 Maternal Grandmother Disorder of thyroid gland [email or web address] Not available 2020 14:09:32 Maternal Grandmother Malignant neoplasm of lung [email or web address] Not available 2020 14:09:42 Medical History Condition Response Anemia Y Gynecological History Statement/Question Response Flow Moderate Frequency of Cycle (Q days) 28 Date of LMP 01/22/2024 Menses Monthly Y Date of Last Pap Smear 12/02/2015 Duration of Flow (days) 5 Current Control Method Tubal Ligat ion LMP Approximate Obstetrics History GPAL:G 3 P 0 0 0 3 Type Value Living 3 Total 3 Past Encounters Encounter ID Performer Location Encounter Start Date Encounter Closed Date Diagnosis/Indication Diagnosis SNOMED-CT Code Diagnosis ICD10 Code Diagnosis Note [id number] Tobias Rosenthal MD [facility] [address] [address] 07/17/2020 13:44:44 07/17/2020 14:48:04 Anxiety 69782422 F41.9 this patient is a 35-year-ol d female who had possible exposure to sex transmitte d disease. We agreed to test Gyne gonorrhea chlamydia Trichomona s. Patient is having some very difficult social issues. Patient reports excessive anxiety and agitation. We agreed to short-term use of Xanax. She has counseling . [id number] KASIE NICHOLE MD [facility] [address] [address] 02/22/2024 14:47:05 02/22/2024 15:46:30 Gynecologic examination 23660634 Z01.419 Well woman care- Cervical cancer screening: Pap smear obtained today, will follow up on the results with the patient as they become available- Breast cancer screening: mammogram not indicated- Colon cancer screening: does not qualify- HPV immunizati on: has not received- STD testing: declined- hereditary cancer screening: does not qualify for testing Health Concerns Section Related Observation LastModified by Organization Detai ls LastModified Time None Recorded Concern Status LastModified by Organization Details LastModified Time None Recorded Advance Directives Directive None Recorded Payers Encounter Date Sequence Insurance Name Policy Number Policy Neal Covered Member ID Neal Member ID Guarantor Name 07/17/2020 1 [facility] PRIOR TO 10/09/2020 (MEDICAID REPLACEMENT - HMO) Jennie Price [id number] Jennie Price 02/22/2024 1 [facility] ON OR AFTER 10/09/20 (MEDICAID REPLACEMENT - HMO) Jennie Price [id number] Jennie Price Notes Date Note Type Note Provider Name and Address Organization Details Recorded Time 07/17/2020 text/html this patient is a 35-year-old female who had possible exposure to sex transmitted disease. We agreed to test Gyne gonorrhea chlamydia Trichomonas. Patient is having some very difficult social issues. Patient reports excessive anxiety and agitation. We agreed to short-term use of Xanax. She has counseling. Tobias Rosenthal MD [address], [place], [address], [facility] 07/17/2020 14:36:51 02/22/2024 text/html Presents today for her annual well-woman exam. Denies abnormal vaginal discharge. She is not sexually active. She is using tubal ligation for contraception, and she states that she is satisfied with this method. She has not noticed any changes or masses in her breasts. Periods extremely light since ablation. KASIE NICHOLE MD [address], [place], [address], [facility] 02/22/2024 15:45:32 OBGyn Episode Ob Episode Information Episode Created Date Number of Fetuses Patient Bloodtype Patient rh Status Prepregnancy Weight lbs Domestic Partner Domestic Partner Phone Father Name Weatherization Field Technician Status 07/18/19 21 1 CLOSED Fetus Data First Name Last Name Admitted to NICU Weight (g) Sex Living Outcome Pediatric Complications Fetus ID Race Codes Race Delivery Type 3855.53 2 M [id number] Vaginal Delivery Humza Calculation Initial Humza Date Initial Exam Date Initial Exam Provider Initial Ultrasound Date Last Menstrual Period Date Ultra Sound Weeks Gestation 0 Eighteen To Twenty Week Humza Update Ultra Sound Date Fundal Height At Umbil Quickening Date Ultra Sound Latest Weeks Gestation Final Humza Confirmed By Final Humza Confirmed Date Final Humza Date Ultra Sound Latest Days Gestation 0 0 Menstrual History Last Menstrual Date Menses Monthly On Bcp Conception Prior Menses Frequency Hcg Plus Date Menarche Onset Age Delivery Information Delivery Date Delivery Type Labor Anesthesia Weeks Gestation Incision Type Labor Labor Length Hrs Delivered By Post Complications Tubal Sterilization Discharge Date Comments 4 Discharge Information Feeding Method Contraceptive Method Maternal HG B and HCT Levels Ob Episode Information Episode Created Date Number of Fetuses Patient Bloodtype Patient rh Status Prepregnancy Weight lbs Domestic Partner Domestic Partner Phone Father Name Weatherization Field Technician Status 07/18/19 21 1 CLOSED Fetus Data First Name Last Name Admitted to NICU Weight (g) Sex Living Outcome Pediatric Complications Fetus ID Race Codes Race Delivery Type 3883.65 [id number] Vaginal Delivery Humza Calculation Initial Humza Date Initial Exam Date Initial Exam Provider Initial Ultrasound Date Last Menstrual Period Date Ultra Sound Weeks Gestation 0 Eighteen To Twenty Week Humza Update Ultra Sound Date Fundal Height At Umbil Quickening Date Ultra Sound Latest Weeks Gestation Final Humza Confirmed By Final Humza Confirmed Date Final Humza Date Ultra Sound Latest Days Gestation 0 0 Menstrual History Last Menstrual Date Menses Monthly On Bcp Conception Prior Menses Frequency Hcg Plus Date Menarche Onset Age Delivery Information Delivery Date Delivery Type Labor Anesthesia Weeks Gestation Incision Type Labor Labor Length Hrs Delivered By Post Complications Tubal Sterilization Discharge Date Comments 1 Discharge Information Feeding Method Contraceptive Method Maternal HG B and HCT Levels Ob Episode Information Episode Created Date Number of Fetuses Patient Bloodtype Patient rh Status Prepregnancy Weight lbs Domestic Partner Domestic Partner Phone Father Name Weatherization Field Technician Status 07/18/19 21 1 CLOSED Fetus Data First Name Last Name Admitted to NICU Weight (g) Sex Living Outcome Pediatric Complications Fetus ID Race Codes Race Delivery Type 3572.03 7 [id number] Vaginal Delivery Humza Calculation Initial Humza Date Initial Exam Date Initial Exam Provider Initial Ultrasound Date Last Menstrual Period Date Ultra Sound Weeks Gestation 0 Eighteen To Twenty Week Humza Update Ultra Sound Date Fundal Height At Umbil Quickening Date Ultra Sound Latest Weeks Gestation Final Humza Confirmed By Final Humza Confirmed Date Final Humza Date Ultra Sound Latest Days Gestation 0 0 Menstrual History Last Menstrual Date Menses Monthly On Bcp Conception Prior Menses Frequency Hcg Plus Date Menarche Onset Age Delivery Information Delivery Date Delivery Type Labor Anesthesia Weeks Gestation Incision Type Labor Labor Length Hrs Delivered By Post Complications Tubal Sterilization Discharge Date Comments 7 Discharge Information Feeding Method Contraceptive Method Maternal HG B and HCT Levels
--- OUTSIDE RECORDS SUMMARY | 2024-08-31 11:14 | XMS_ITS | Data Portability ---
Author Organization [facility], Main Office Address [address] [place] [address] Assessment No assessment recorded. Plan of Treatment Reminders Order Date Submit Date Provider Last Modified By Organization Details Last Modified Time Details Appointments None recorded. Lab drug screen, urine 2024 [address] [place] [address] (Lab), [address] [place], [address], 17:44:17 drug screen, urine 2024 025 [facility] (Lab), [address] [place], [address], 17:43:43 Referral None recorded. Procedures None recorded. Surgeries None recorded. Imaging None recorded. Medication Orders ibuprofen 800 mg tablet 2024 025 [facility], [address] [place], [place], [id number], 10:22:38 phentermine 37.[address] [facility] 200 [facility], [address] [place], [id number], 10:22:38 ciprofloxac in 500 mg tablet 2024 025 [email or web address] [facility], [address] [place], [id number], 5 09:56:57 promethazin e-DM 6.25 mg-15 mg/5 mL oral syrup [address] [facility] #97898, [address], [place], [place], [id number], 5 09:57:10 alprazolam 0.5 mg tablet 2024 025 [facility] #53592, [address], [place], [place], [id number], 5 12:23:13 oxycodone-a cetaminophe n 5 mg-325 mg tablet [email or web address] [facility] #09705, [address], [place], [place], [id number], 4 12:17:03 bupropion HCl XL 300 mg 24 hr tablet, extended release [address] [facility] #81020, [address], [place], [place], [id number], 5 09:56:50 oxycodone-a cetaminophe n 5 mg-325 mg tablet 2023 024 [facility] #57240, [address], [place], [place], [id number], 4 16:54:50 ibuprofen 800 mg tablet 2023 024 [facility] #50573, [address], [place], [place], [id number], 4 16:54:51 oxycodone-a cetaminophe n 5 mg-325 mg tablet 2023 024 [facility] #85798, [address], [place], [place], [id number], 4 11:40:30 alprazolam 1 mg tablet 2023 024 [facility]34100, [address], [place], [place], [id number], 4 08:40:55 Patient TargetsNo targets recorded. Patient Instructions Encounter Date Encounter Id Patient Instructions Last Modified By Organization Details Last Modified Time 04/19/2024 [id number] i advised she do a test for Covid , [id number] Not available 04/24/2024 16:37:23 Reason for Referral None Reported. Results Created Date Observation Date Name Description Value Unit Range Abnormal Flag Note LastModifiedBy Organization Detail LastModifiedTime Result Notes None recorded. Problems Name Problem SNOMED Code Status Onset Date Resolution Date Notes Provider Name and Address Organization Details Recorded Time Low back pain 769614428 Active 2021 Not Available [facility] 4 18:53:01 Arthritis 8152890 Active 2021 Not Available [facility] 4 18:53:01 Lateral epicondyli tis of right humerus 4064758587612 07 Active 2022 Not Available [facility] 4 18:53:01 Pain of bilateral hands 1286064837805 9109 Active 2022 Not Available [facility] 4 18:53:01 Chronic low back pain 446470385 Active 2022 Not Available [facility] 4 18:53:01 Overweight 039108802 Active 2022 Not Available [facility] 4 18:53:01 Neuropathy 985200263 Active 2022 Not Available [facility] 4 18:53:01 Anxiety 14365659 Active 2022 Not Available [facility] 4 18:53:01 Depressive disorder 25962469 Active 2022 Not Available [facility] 4 18:53:01 Obesity 015497606 Active 2022 Not Available [facility] 4 18:53:01 Obese 818241263 Active 2023 ALEXANDER Cheng [address], [place], [address] , [facility] 4 10:03:59 Adult health examinatio n Active 2024 ALEXANDER Cheng [address], [place], [address] , [facility] 5 12:18:52 Sinusitis 02535248 Active 2024 ALEXANDER Cheng [address], [place], [address] , [facility] 5 12:20:28 Problem Notes None recorded. Procedures Surgical History Date Name Laterality Status Provider Name and Address Organization Details Recorded Time oophorectomy completed Not Available [facility] 06/09/2022 10:41:45 Ablation completed Not Available [facility] 10:41:45 Cholecystectomy completed Not Available [facility] 06/09/2022 10:41:45 Imaging Results None recorded. Procedure Notes None recorded. Medical Equipment None Reported. Allergies Allergen ID Allergen Name Allergen Category Reaction Reaction Severity Criticality Documentation Date Start Date Code Code System Note Provider Name and Address Organization Details Recorded Time 80999 latex environme nt,medica tion Not available Not available Not available 06/09/2022 65360 91 RxNorm Not Available [facility] 3 10:45:13 29199 cyclobenz aprine hydrochlo ride medicatio n Not available Not available Not available 06/09/2022 90896 RxNorm Not Available [facility] 3 10:45:13 19042 Dilaudid medicatio n other mild Not available 06/09/2022 11305 3 RxNorm Not Available [facility] 3 10:45:13 Medications Name Sig Start Date Stop Date Status Note LastModified by Organization Details LastModified Time promethaz ine-DM 6.25 mg-15 mg/5 mL oral syrup Take 5 mL every 4 hours by oral route as needed for 10 days. 06/26 completed Not Available Not Available Not Available quetiapin e 300 mg tablet TAKE 2 TABLETS BY MOUTH AT BEDTIME 05/04 completed Not Available Not Available Not Available clindamyc in HCl 300 mg capsule TAKE 1 CAPSULE BY MOUTH THREE TIMES DAILY 02/01 completed Not Available Not Available Not Available ibuprofen 800 mg tablet TAKE 1 TABLET BY MOUTH THREE TIMES DAILY WITH MEALS active Not Available Not Available No t Available alprazola m 1 mg tablet TAKE 1 TABLET BY MOUTH TWICE DAILY NEEDED 03/06 completed Not Available Not Available Not Available fluconazo le 150 mg tablet 06/26 completed Not Available Not Available Not Available hydrocodo ne 5 mg-acetam inophen 325 mg tablet TAKE 1 TABLET BY MOUTH EVERY 6 HOURS NEEDED FOR PAIN 01/18 completed Not Available Not Available Not Available prednison e 20 mg tablet Take 2 tabs PO twice daily for 2 days; 1 tab PO twice daily for 5 days; 1/2 tab PO twice daily for 2 days; 1/2 tab PO once for 1 day. TAKE 2ND DOSE EVERYDAY AT NOON-10 DAY COURSE 02/01 completed Not Available Not Available Not Available phentermi ne 37.5 mg tablet TAKE 1 TABLET BY MOUTH EVERY DAY 2024 active Not Available Not Available Not Avai lable ciproflox acin 500 mg tablet TAKE 1 TABLET BY MOUTH EVERY 12 HOURS 06/26 completed Not Available Not Available Not Available Depo-Medr ol 80 mg/mL suspensio n for injection Take 1 mL by injectio n route. 06/02 completed Not Available Not Available Not Available oxycodone -acetamin ophen 5 mg-325 mg tablet TAKE 1 TABLET BY MOUTH TWICE DAILY NEEDED 2024 active Not Available Not Available Not Avai lable alprazola m 0.5 mg tablet TAKE 1 TABLET BY MOUTH TWO TIMES DAILY as needed , make last 30 days 2024 active Not Available Not Available Not Avai lable amoxicill in 875 mg tablet 06/02 completed Not Available Not Available Not Available cephalexi n 500 mg capsule TAKE 1 CAPSULE BY MOUTH FOUR TIMES DAILY FOR 7 DAYS 02/01 completed Not Available Not Available Not Available nicotine 21 mg/24 hr daily transderm al patch APPLY 1 PATCH TOPICALL Y TO THE SKIN EVERY DAY 05/04 completed Not Available Not Available Not Available diclofena c sodium 75 mg tablet,de layed release TAKE 1 TABLET BY MOUTH EVERY DAY 09/26 completed pt d/c states she is taking OTC ibuprofe n Not Available Not Available Not Available mirtazapi ne 15 mg tablet TAKE 1 TABLET BY MOUTH EVERY DAY AT BEDTIME 12/24 completed Not Available Not Available Not Available methylpre dnisolone 4 mg tablets in a dose pack FOLLOW PACKAGE DIRECTIO NS 07/27 completed unable to finish pack Not Available Not Available Not Available amoxicill in 875 mg-potass ium clavulana te 125 mg tablet TAKE 1 TABLET BY MOUTH TWICE DAILY WITH FOOD FOR 7 DAYS 06/02 completed Not Available Not Available Not Available bupropion HCl XL 300 mg 24 hr tablet, extended release TAKE 1 TABLET BY MOUTH EVERY DAY 06/26 completed would like to discuss an alternat seth Not Available Not Available Not Available bupropion HCl XL 150 mg 24 hr tablet, extended release TAKE 1 TABLET BY MOUTH EVERY DAY 02/14 completed Not Available Not Available Not Available topiramat e 50 mg tablet TAKE 1 TABLET BY MOUTH EVERY DAY AT BEDTIME 05/04 completed Not Available Not Available Not Available pregabali n 150 mg capsule TAKE 1 CAPSULE BY MOUTH TWICE DAILY 06/15 completed Not Available Not Available Not Available pregabali n 200 mg capsule TAKE 1 CAPSULE BY MOUTH TWICE DAILY 04/19 completed Not Available Not Available Not Available chlorhexi dine gluconate 0.12 % mouthwash SWISH AND SPIT 10 ML BY MOUTH TWICE DAILY 04/19 completed Not Available Not Available Not Available quetiapin e 400 mg tablet TAKE 1 TABLET BY MOUTH AT BEDTIME 05/04 completed Not Available Not Available Not Available Rexulti 0.5 mg tablet Take 1 tablet every day by oral route for 30 days. 04/19 completed Not Available Not Available Not Available ID NOW COVID-19 Test Kit TEST DIRECTED TODAY 11/08 completed Not Available Not Available Not Available Wegovy 0.25 mg/0.5 mL subcutane ous pen injector Inject 0.25 mg every week by subcutan eous route. 08/10 completed Not Available Not Available Not Available Vitals Date Recorded Body height Body mass index (BMI) Body weight Heart rate Oxygen saturation Oxygen saturation in Arterial blood by Pulse oximetry Body temperature Respiratory rate Systolic blood pressure Diastolic blood pressure Provider Name and Address Organization Details Last Updated DateTime 4 165.1 cm 32.9 kg/m2 57740.2 9 g 95 /min 98 % 98 % 98.1 [degF] 16 /min 132 mm[Hg] 84 mm[Hg] Rody Mukherjee RN [facility] 4 08:58:45 Date Recorded Body height Body mass index (BMI) Body weight Body temperature Heart rate Oxygen saturation Oxygen saturation in Arterial blood by Pulse oximetry Systolic blood pressure Diastolic blood pressure Provider Name and Address Organization Details Last Updated DateTime 4 165.1 cm 31.7 kg/m2 62522.3 g 97.1 [degF] 69 /min 98 % 98 % 126 mm[Hg] 76 mm[Hg] Karlee Bell MA [facility] 4 16:43:20 Date Recorded Body height Body mass index (BMI) Body weight Body temperature Heart rate Oxygen saturation Oxygen saturation in Arterial blood by Pulse oximetry Systolic blood pressure Diastolic blood pressure Provider Name and Address Organization Details Last Updated DateTime 4 165.1 cm 33.1 kg/m2 39706.8 8 g 97.3 [degF] 76 /min 99 % 99 % 110 mm[Hg] 72 mm[Hg] Rafaela Hagan RN [facility] 4 12:00:37 Date Recorded Body height Body mass index (BMI) Body weight Body temperature Heart rate Oxygen saturation Oxygen saturation in Arterial blood by Pulse oximetry Systolic blood pressure Diastolic blood pressure Provider Name and Address Organization Details Last Updated DateTime 5 165.1 cm 35.8 kg/m2 20943.3 6 g 98.2 [degF] 83 /min 99 % 99 % 112 mm[Hg] 76 mm[Hg] Rafaela Hagan RN [facility] 5 12:08:04 Date Recorded Body height Body mass index (BMI) Body weight Oxygen saturation Oxygen saturation in Arterial blood by Pulse oximetry Heart rate Body temperature Systolic blood pressure Diastolic blood pressure Provider Name and Address Organization Details Last Updated DateTime 5 165.1 cm 36 kg/m2 72536.3 1 g 95 % 95 % 88 /min 98.4 [degF] 138 mm[Hg] 88 mm[Hg] Drea Guerrero CNA [place] [facility] [place] [facility] 5 09:55:36 Social History Question Answer Notes LastModified by Organizat ion Details LastModified Time Tobacco Smoking Status Former Smoker 1ppd Not Available [facility] 06/09/2022 10:40:41 How Many Years Have You Smoked Tobacco? 20 [id number] Information not available 06/09/2022 Sex: Female Functional Status Question Answer Note LastModified by Organization D etails LastModified Time What is your level of alcohol consumption? None [email or web address] Information not available 06/26/2024 Mental Status None recorded. Family History Relationship Description Onset Age of this Age Resolved Age Notes LastModified by Organization Details LastModified Time Maternal Grandfather Hypertensive disorder [id number] Not available 06/09/2022 10:41:47 Mother Hypertensive disorder [id number] Not available 06/09/2022 10:41:47 Medical History Condition Response BLINDNESS N RHEUMATIC FEVER N KIDNEY STONES N BLADDER PROBLEMS N MRSA N OTHER # 1 N POLIO N LUNG DISEASE/DISORDER N HISTORY OF DRUG ABUSE N RADIATION / CHEMOTHERAPY N COPD N Other # 2 N BLOOD DISEASES N SURGERY N EAR OR HEARING PROBLEMS N MUMPS N SHINGLES N BOWEL PROBLEMS N FEMALE PROBLEMS / INFECTIONS N DEPRESSION (INCLUDING POST ) Y STROKE/TIA N THYROID DISEASE N ULCERS N BENIGN PROSTATIC HYPERPLASIA N MEASLES N CERVICALGIA N HYPOTENSION N TB SKIN TEST N MYOCARDIAL INFARCTION N PARAPELGIA N OBESITY N GERD/NAUSEA N ANEURYSM N URINARY/BLADDER/KIDNEY PROBLEMS N CORONARY ARTERY DISEASE (CAD) N MENIERE'S DISEASE N ADDICTION CONCERNS N ENDOMETRIOSIS N USE OF BLOOD THINNERS N SKIN PROBLEMS N EMPHYSEMA N GASTROINTESTINAL DISORDER N MUSCLE,JOINT OR BONE PROBLEMS N GASTROINTESTINAL BLEEDING N BLOOD CLOTS N ASTHMA N CATARACTS N ERECTILE DYSFUNCTION N GI PROBLEMS N CHF N Low Testosterone N NEUROPATHY N INFERTILITY N AIDS/HIV N FRACTURES N CHEMOTHERAPY / RADIATION N VISION/EYE PROBLEMS N LIVER DISEASE N MALE HYPOGONADISM N HYPERTENSION N TOURETTE'S N ANXIETY DISORDER Y BLOOD TRANSFUSION N ANEMIA/BLOOD DISORDER N CHRONIC EAR INFECTIONS N BRONCHITIS N TUBERCULOSIS N GLAUCOMA N FOOT PROBLEM N DIVERTICULITIS N CHICKENPOX N SLEEP APNEA N ALLERGIES/HAYFEVER N INFECTIOUS DISEASE N HEART ARRHYTHMIA N PROSTATE N INSOMNIA N HIGH CHOLESTEROL / HYPERLIPIDEMIA N HYPERTHYROIDISM N EYE PROBLEMS N EATING DISORDER N EDEMA N CHRONIC PAIN SYNDROME N CONSTIPATION N CAROTID BLOCKAGE N BACK / NECK PROBLEMS N HAVE YOU BEEN HOSPITALIZED OR SEEN IN [facility] IN THE PAST YEAR ? N ATHEROSCLEROSIS N BREAST PROBLEMS N DIALYSIS N ECZEMA N FIBROMYALGIA N OSTEOPOROSIS N ARTHRITIS N NO SIGNIFICANT PAST MEDICAL HISTORY N APPENDICITIS N DIABETES, TYPE N BAD TEETH N HEARTBURN / REFLUX N ADD/ADHD N AUTISM SPECTRUM DISORDER (ASD) N HEPATITIS / LIVER DISEASE N PULMONARY DISEASE N GOUT N SLEEP DISORDER N ALZHEIMER'S DISEASE N PAIN N HERPES N DEMENTIA N HEADACHES/MIGRAINES Y SEIZURES/EPILEPSY N VASCULAR DISEASE N PACEMAKER N DIZZINESS N HEART DISEASE/HEART PROBLEMS N KIDNEY DISEASE N DEVELOPMENTAL OR BEHAVIORAL DISORDERS N MULTIPLE SCLEROSIS N SCARLET FEVER N MENTAL DISORDER/ILLNESS N CARDIAC ARRHYTHMIA N CANCER: SPECIFY N PNEUMONIA N ATRIAL FIBRILLATION N Gall Stones N PULMONARY EMBOLISM N AUTOIMMUNE DISEASE N Gynecological HistoryNo gynecological history recorded. Obstetrics History GPAL:G 0 P 0 0 0 0 Past Encounters Encounter ID Performer Location Encounter Start Date Encounter Closed Date Diagnosis/Indication Diagnosis SNOMED-CT Code Diagnosis ICD10 Code Diagnosis Note [id number] Yassine Parnell MD [facility] [place] [facility] [place] [address] 05/04/2021 00:00:00 05/04/2021 20:31:28 [id number] Yassine Parnell MD [facility] [place] [facility] [place] [address] 07/27/2021 00:00:00 07/27/2021 20:16:43 [id number] Yassine Parnell MD [facility] [place] [address] 12/24/2021 00:00:00 12/25/2021 06:23:49 [id number] Yassine Parnell MD [facility] [place] [facility] [place] [address] 06/09/2022 11:56:33 06/09/2022 12:01:38 Lateral epicondylitis of right humerus 6167593889 69478 M77.11 Use tennis elbow strap Use heat and NSAIDs as needed Pain of bi lateral hands 9602356618 3749069 M79.641 Soak in hot water and NSAIDs [id number] Yassine Parnell MD [facility] [place] [facility] [place] [address] [address] 11/03/2022 14:48:06 11/03/2022 15:19:50 Depressive disorder 70296906 F32.A F/u in 6 weeks. Chronic low back pain 27 8912976 M54.50 Continue oxycodone prn. [id number] Yassine Parnell MD [facility] [place] [address] [place] [address] 02/14/2023 14:21:29 02/14/2023 15:11:56 Depressive disorder 72145287 F32.A Will increase wellbutrin to 300 mg XL F/u in 6-8 weeks. Obesity 156288235 E66.9 Chronic low back pain 27 5370964 M54.50 Continue oxycodone prn. [id number] Yassine Parnell MD [facility] [place] [address] [place] [address] 07/14/2023 08:54:27 07/14/2023 09:20:34 Anxiety 48952332 F41.9 Arthritis 3121025 M19.90 Chronic low back pain 27 4839420 M54.50 Depressive disorder 3548 9007 F32.A Lateral ep icondylitis of right humerus 3353227994 64223 M77.11 Neuropathy 845268917 G62 .9 Obesity 202491805 E66.9 [id number] Raciel Perez MD [facility] [place] [address] [place] [address] 11/02/2023 16:34:01 11/02/2023 17:01:27 Chronic low back pain 574545342 M54.50 Anxiety 61456773 F41.9 Arthritis 9283202 M19.90 Depressive disorder 3548 9007 F32.A Neuropathy 649014284 G62 .9 [id number] Raciel Perez MD [facility] [address] [facility] [address] , [place] [address] 02/02/2024 11:45:18 02/02/2024 12:18:29 Chronic low back pain 007887131 M54.50 Depressive disorder 3548 9007 F32.A Anxiety 58395189 F41.9 Arthritis 6817369 M19.90 Low back pain 826694870 M54.50 Neuropathy 360097381 G62 .9 Obesity 398121439 E66.9 [id number] Raciel Perez MD [address] [address] 04/19/2024 11:48:35 04/19/2024 12:33:40 Adult health examination 784552801 Z00.00 Sinusitis 40318497 J32.9 Anxiety 73612395 F41.9 Obese 028021370 E66.9 Neuropathy 665616389 G62 .9 [id number] Raciel Perez MD [address] [address] 06/26/2024 09:45:42 07/05/2024 15:17:54 Overweight 875861869 E66.3 Chronic low back pain 27 6151599 M54.50 Anxiety 32738997 F41.9 Long-term current use of benzodiazepine 1375009272 3111153 Z79.899 Long-term current use of opiate analgesic drug 7946802031 14806 Z79.891 Arthritis 7372823 M19.90 Depressive disorder 3548 9007 F32.A Low back pain 963730639 M54.50 Neuropathy 781587295 G62 .9 Obese 912382076 E66.9 Health Concerns Section Related Observation LastModified by Organization Detai ls LastModified Time None Recorded Concern Status LastModified by Organization Details LastModified Time None Recorded Advance Directives Directive None Recorded Payers Encounter Date Sequence Insurance Name Policy Number Policy Neal Covered Member ID Neal Member ID Guarantor Name 07/14/2023 1 [facility] ON OR AFTER 10/09/20 (MEDICAID REPLACEMENT - HMO) Jennie Fosnock [id number] Jennie Fosnock 11/02/2023 1 [facility] ON OR AFTER 10/09/20 (MEDICAID REPLACEMENT - HMO) Jennie Fosnock [id number] Jennie Fosnock 02/02/2024 1 [facility] ON OR AFTER 10/09/20 (MEDICAID REPLACEMENT - HMO) Jennie Fosnock [id number] Jennie Fosnock 04/19/2024 1 [facility] ON OR AFTER 10/09/20 (MEDICAID REPLACEMENT - HMO) Jennie Fosnock [id number] Jennie Fosnock 06/26/2024 1 [facility] ON OR AFTER 10/09/20 (MEDICAID REPLACEMENT - HMO) Jennie Fosnock [id number] Jennie Fosnock Notes Date Note Type Note Provider Name and Address Organization Details Recorded Time 07/14/2023 text/html no changes ALEXANDER Cheng [address], [place], [address], [employer] 07/25/2023 20:49:47 11/02/2023 text/html no changes ALEXANDER Cheng [address], [place], [address], [employer] 11/14/2023 10:25:58 02/02/2024 text/html no changes ALEXANDER Cheng [address], [place], [address], [employer] [facility] 03/01/2024 14:02:11 04/19/2024 text/html cough , congesti on , chills , ALEXANDER Cheng [address], [place], [address], [employer] [facility] 04/24/2024 16:39:48 06/26/2024 text/html willing to stop the oxycodone if she can get her phentermine short term even ALEXANDER Cheng [address] [facility], [facility] [address], [place], [address], [place] [facility] [place] [employer] 07/03/2024 13:52:54 OBGyn Episode No OBEpisode recorded.
[2024-08-31 11:15] VITALS: BP 135/78; PULSE 85; RESP 20; TEMP 36.6; O2SAT 100
--- OUTSIDE RECORDS SUMMARY | 2024-08-31 11:16 | XMS_ITS | Continuity of Care Document ---
Author Organization [facility] Address [address] [place] [address] [place] [address] Phone Care Team Providers Care Technical Sales Specialist Name Role Phone Aaron Riggins MD Unavailable [...] Diagnoses Date Provider Providers Copied on Encounter [facility], [address] [place], [place], [id number], tel:[phone] [facility] No Information Gilson Walker. [address] [place], [place], [id number], [place]. tel:[phone] Referring Provider: Aaron Riggins, [address] [facility] [place], [place], [id number]. tel:[phone] OFFICE/OUTPAT IENT VISIT, EST [facility], [address] [place], [place], [id number], tel:[phone] [facility] shoulder pain1 (chief complaint) Pain in left shoulder Gilson Walker. [address], [place], [place], [id number], [place]. tel:[phone] Referring Provider: Kathrine Sanchez [facility], [place], [place], [id number]. tel:[phone] PREV VISIT, NEW, AGE 18-39 [facility], [address], [place], [place], [id number], [place] tel:[phone] [facility] Physical (chief complaint) Encntr for general adult medical exam w/o abnormal findings Gilson Walker. [address], [facility] [address], [place], [place], [id number], [place]. tel:[phone] Referring Provider: Aaron Riggins [address] [facility] [address], [place], [place], [id number]. tel:[phone] Family History Family Member Type Diagnosis Age At Onset Sister Problem (finding) Alive and well Mother Problem (finding) Alive and well Father Problem (finding) unkonwn Payers Payer name Insurance type Covered green party ID Authoriza tion(s) No Information Social History [...] Paul [address] [place], [phone] Ordered: Referrals: Davin Paul. Evaluate and treat [...] NSAID but not working. [facility] 29 [facility] Pt was making bed [...]
--- OUTSIDE RECORDS SUMMARY | 2024-08-31 11:16 | XMS_ITS ---
Author Name [facility] Address [address] [place] [address] Phone Organization [facility] Address [address] [place] [address] Phone Care Team Providers Care Forming Roll Operator Heavy Duty Name Role Phone [facility] Unavailable [phone] ALLERGIES, ADVERSE REACTIONS AND ALERTS Allergy Name Allergy Date Allergy Status Allergy Severity Allergy Reaction Latex, [RxNorm: 4074208] 08/10/2023 Current MEDICATIONS RxNorm Brand Name Prescription Ordered Value Order Unit Start Date Date Status Fill Status Indications 158902 chlorhex idine gluconat e 0.12 % mouthwas h SIG: chlorhexidine gluconate 0.12 % mucous membrane mouthwash, 0 days, Dispense #473 Milliliter, 0 Refills, Directions: 10 ml swish and spit bid 473 mouthwas h 2023 Current [id number] clindamy javan HCl 300 mg capsule SIG: clindamycin HCl 300 mg oral capsule, 7 days, Dispense #21 Capsule, 0 Refills, Directions: 1 po tid 21 capsule 2023 Current 177862 ibuprofe n 800 mg tablet SIG: ibuprofen 800 mg oral tablet, 0 days, Dispense #30 Tablet, 0 Refills, Directions: 1 po tid prn pain/fever 30 tablet 2023 Current PROBLEMS Problem None PROCEDURES Procedure Description Date Notes NO PROCEDURES PERFORMED ASSESSMENTS Assessment None PLAN OF TREATMENT Assessment Planned Activity LOINC Planned Randy e None CONSULTATION NOTE Note Author Date None HISTORY AND PHYSICAL NOTE Note Author Date None PROGRESS NOTE Note Author Date None DISCHARGE SUMMARY Note Author Date None CHIEF COMPLAINT AND REASON FOR VISIT FUNCTIONAL STATUS Functional or Cognitive Find ing None MENTAL STATUS Cognitive Finding None ENCOUNTERS Encounter Type Provider Diagnoses Start Date Location None SOCIAL HISTORY Social Status Observation Unknown if ever smoked Sex:Female CARE TEAM INFORMATION Forming Roll Operator Heavy Duty Provider ID Role Location Phone [facility] [address] [place] [address]
--- OUTSIDE RECORDS SUMMARY | 2024-08-31 11:16 | XMS_ITS | CONTINUITY OF CARE DOCUMENT ---
Author Name brandon taylor Address Unknown Organization [facility] Address [address] [place] [address] Phone [phone] Care Team Providers Care Hogshead Cooper Name Role Phone Yves BURGESS, Kamran Unavailable [phone] CHINO LO MD Unavailable [phone] BELA BURGESS, MARTINA Holland Unavailable [phone] INSURANCE PROVIDERS Payer name Policy type / Coverage type [place] red republic[employer] Medicaid 1 [id number]
--- NOTE | 2024-08-31 11:27 | ED.LOWEXIN ---
HPI - Extremity Injury (Lower) General Chief Complaint: Extremity Injury, Lower Stated Complaint: Left Knee Injury Time Seen by Provider: 08/31/24 11:27 Source: patient Mode of arrival: ambulatory Limitations: no limitations History of Present Illness HPI Narrative: 39-year-old female presented for complaint of left knee pain for 1 week. Endorses injury occurred while playing soccer, states while kicking a ball the left foot landed on the ground she felt a sudden pain in the left knee. Since then has worn a knee support. Endorses pain is worse with walking. Denies endorses decreased range of motion. Denies numbness, tingling, weakness. Takes occasional ibuprofen Related Data Home Medications ?Medication ?Instructions ?Recorded ?Confirmed ?Last Taken ?Type No Home Medications 08/31/24 08/31/24 Unknown History Allergies Allergy/AdvReac Type Severity Reaction Status Date / Time latex Allergy Intermediate PEELING OF Verified 08/31/24 11:14 SKIN etodolac AdvReac Severe DELIRIUM/NA Verified 08/31/24 11:14 USEA PAPER TAPE Allergy Unknown PEELS SKIN Uncoded 08/31/24 11:14 OFF Review of Systems Review of Systems: CONSTITUTIONAL: Denies body aches, fever, chills EYES: Denies visual changes ENT: Denies rhinorrhea, congestion CARDIOVASCULAR: Denies chest pain, palpitations, or edema. RESPIRATORY: Denies cough or dyspnea. SKIN: Denies rash, itching, or wounds. MUSCULOSKELETAL: reports left knee pain NEUROLOGIC: Denies headache, numbness, tingling, or weakness. All systems reviewed & are unremarkable except as noted in HPI and below PMFSH Comments At time of signature, I have reviewed and agree with nursing past medical, surgical, social and family history unless otherwise noted. Please see nursing chart for further information. There is no relevant family history pertinent to the presenting complaint Exam Narrative: GENERAL: Well-appearing CHEST: Speaks in full sentences. No respiratory distress. HEART: Regular rate and rhythm. Normal and equal peripheral pulses. EXTREMITIES: Left medial knee is tender with light palpation of skin. Pain is worse medially. Knee has decreased range of motion with flexion/extension due to endorses pain with movement. No swelling or ecchymosis, No open wounds. alignment normal, pulse palpable and equal bilaterally, skin warm, dry, pink. Capillary refill less than 3 seconds. SKIN: Warm, dry, no rash. NEURO: Alert and oriented x3. PSYCH: Normal mood and affect Course Course Emergency Course: Patient is aware of diagnosis, understands and agrees to treatment plan. Anticipatory guidance given. Patient agrees to follow-up as directed and is aware of reasons to seek care at the emergency department. Portions of this record may have been created with voice recognition software Level of Care: Express Care Visit Vital Signs Vital signs: Vital Signs Temperature 97.9 F 08/31/24 11:15 Pulse Rate 85 08/31/24 11:15 Respiratory Rate 08/31/24 11:15 Blood Pressure 135/78 08/31/24 11:15 Pulse Oximetry 100 08/31/24 11:15 Oxygen Delivery Room Air 08/31/24 11:15 Temperature 97.9 F 08/31/24 11:15 Pulse Rate 85 08/31/24 11:15 Respiratory Rate 08/31/24 11:15 Blood Pressure 135/78 08/31/24 11:15 Pulse Oximetry 100 08/31/24 11:15 Oxygen Delivery Room Air 08/31/24 11:15 Reviewed MDM - Extremity Injury (Lower) MDM Narrative Medical decision making narrative: Discussed physical exam findings and knee xray. Will continue to wear her knee brace from home. Advised close f/u with pcp for further management as she may need additional imaging. Advised supportive measures and signs/symptoms to go to the ER. Pt is appropriate for outpt treatment and f/u. Differential Diagnosis Differential diagnosis: Likely other (osteoarthritis, patella dislocation, patellar tendonitis, tendon rupture, gout, bakers cyst, septic bursitis, dvt, tibial plateau fracture) Imaging Data Radiologist's impression: Patient: Jennie Price : 1985 MR#: [id number] Age: 39 Acct:[id number] Loc: [facility] ADM Date: 08/31/24Attending Dr: Ordering Physician: Lindsey Roca APRN Date of Service: 08/31/24 Procedure(s): XR knee LT min 4V Accession Number(s): [id number] cc: Lindsey Roca APRN; Heri, Deirdre Garcia MD~ Left Knee Technique: AP, lateral, and oblique views were obtained. Clinical History: Pain Findings: No fracture or dislocation is seen. Osseous alignment is anatomic. Joint spaces are preserved without degenerative or erosive change. Soft tissues are unremarkable. No joint effusion is seen. Impression: Unremarkable left knee radiographs. Discharge Plan Discharge Clinical Impression: Acute knee pain Patient Disposition: Home Condition: Stable Instructions: Antibiotic Form, Knee Sprain (ED) Additional Instructions: Rest and elevate the left leg; bear weight as tolerated. avoid excessive walking, running, or jumping until pain is fully resolved or released by specialist. Apply ice 15-20 minute intervals several times a day Keep it wrapped with ASHLEY or use a soft ankle splint Motrin 800mg every 8 hours, alternate with Tylenol 1000mg every 8 hours as needed Follow up with your primary care provider, call today to schedule an appointment Go to the ER for worsening symptoms or concerns Patient Language: German Prescriptions: No Action No Home Medications Follow-up/Referrals: Jayson,Deirdre Garcia MD [Primary Care Provider] - Time of Disposition: 12:13
--- NOTE | 2024-08-31 11:44 | PC.NURSE ---
PT DECLINED ICE FOR COMFORT
== END 2024-08-31 12:16 | disposition home or self-care (01) ==
PROVIDERS: Emergency Provider Nurse Practitioner Family; PCP Family Medicine
DX: M25.562 Pain in left knee (principal)
CPT/HCPCS: 73564; 99213; G0463